=== PATIENT | female | born 1990 | race Caucasian/White ===

== ENCOUNTER 2020-06-09 14:01 | Inpatient (IN) | payer OTHER ==
[2020-06-09 15:03] VITALS: BMI 27.7
[2020-06-09] MEDS ORDERED: Promethazine HCl 25 MG/ML VIAL IM PRN (15:10)
[2020-06-09] MEDS ORDERED: hydrALAZINE 20 MG/ML VIAL SLOW IVP PRN (15:10)
[2020-06-09] MEDS ORDERED: Ondansetron PF 4 MG/2 ML Vial IVP PRN (15:10)
[2020-06-09] MEDS ORDERED: Lidocaine 1% (PF) 30 ML VIAL SC PRN (15:10)
--- NOTE | 2020-06-09 15:13 | PDOC.FPROB ---
FMR OB H&P: HPI - History of Present Illness Chief Complaint: LOF Indentification: 30yo at 39.0wks by LMP c/w 1T US History of Present Illness: 30yo at 39.0wks presents for clear LOF at 1330. Endorses FM. Denies vaginal bleeding. Reports multiple right sided rib fractures 6wks ago but pain is much improved. Reports starting to have mild contractions. Primary Care Physician: Dr Bolanos FMR OB H&P: Current - Care : 3 Para: 0020 Gestational age: 39.0wks Due date: 06/16/2020 Dating Criteria: LMP c/w 1T US Course/Complications: Rib fxs 6wks ago - OB Labs Blood type: A RH: positive Antibody Screen: negative HIV: negative RPR: negative HepBsAg: negative Rubella: immune Quad screen: negative Urine drug screen: negative Gonorrhea: negative Chlamydia: negative Pap Smear: 05/31/2017 1 hour gtt: 105 GBS: negative H&H: 11.6/32.7 Platelets: 259 FMR OB H&P: History - Past Medical History PMH: Denies - OB History OB History: 2 spontaneous abortions - Surgical History Sx History: Resection of fibroadenoma - Social History Social History: Denies alcohol, drug and tobacco use FMR OB H&P: Medications - Current Home Medications: Medication Instructions Recorded Confirmed Type Pnv No.95/Ferrous Fum/Folic AC 1 tablet PO DAILY 06/09/20 06/09/20 History [ Tablet] Allergies/Adverse Reactions: Allergies Allergy/AdvReac Type Severity Reaction Status Date / Time No Known Allergies Allergy Verified 06/09/20 14:57 FMR OB H&P: ROS - Review of Systems General: denies: fever/chills, fatigue Eyes: denies: vision changes ENT: denies: nasal congestion, rhinorrhea Cardiovascular: denies: chest pain, edema Respiratory: denies: cough, congestion, shortness of breath Gastrointestinal: denies: abdominal pain, nausea, vomiting Genitourinary (Female): reports: contractions. denies: dysuria, vaginal bleeding Musculoskeletal: reports: other (Right rib pain) Neurologic: denies: weakness, headache Integumentary: denies: rash, lesions FMR OB H&P: Vital Signs - Maternal Vital signs: BP: 123/68 HR: 76 - Heart Tones Baseline: 130 Variability: moderate Acceleration: present Deceleration: absent Category: category 1 [place] contractions every: Irregular FMR OB H&P: Physical Exam - Physical Exam General: NAD, awake, alert and oriented HEENT: normocephalic and atraumatic, no scleral icterus, grossly normal hearing Neck: supple Heart: RRR, no murmurs/rubs/gallops General: CTAB, no respiratory distress Abdomen: soft, gravid, non-tender Musculoskeletal: pulses present, no misalignment/asymmetry, no atrophy Neurological: no focal deficit Skin: no rash Lymphatic: no unusual bruising or bleeding Psychiatric: intact recent and remote memory, good judgement and insight, normal mood and affect - Pelvic Exam Vulva: no lesions, no discharge SVE: /0 Membranes: SROM- continuous clear leakage of fluid Presentation: cephalic by US FMR OB H&P: A/P Disposition: 30yo at 39.0wks by LMP c/w 1T US presents with SROM sIUP with SROM - Clear leakage of fluid on exam. SVE /0 unchanged from last clinic exam - FHTs Cat 1 - Starting to contract, discussed expectant management vs pitocin. Pt would like to try expectant management at this time - Screening COVID swab collected, asymptomatic - Desires epidural prior to delivery - Admit to L&D Discussion: Date/Time: 06/09/20 6611 This H&P was discussed with Dr. Carpenter who agrees with the above documentation and plan.
[2020-06-09] MEDS ORDERED: NS w/ Oxytocin 10 units 500 ML IV SCH ×2 (15:15)
[2020-06-09] MEDS ORDERED: Lactated Ringer's 1,000 ML IV SCH (15:15)
[2020-06-09] MEDS ORDERED: Fentanyl 4 mcg/Bup 0.1% Cadd 100 ML ONE (15:34)
[2020-06-09 15:40] LABS: Hemoglobin 12.4 g/dL (12.0-16.0); Mean Corpuscular HGB CONC 34.9 g/dL (32.0-36.0); Mean Corpuscular Hemoglobin 29.5 pg (27.0-31.0); Mean Corpuscular Volume 84.6 fL (78.0-98.0); Mean Platelet Volume 10.6 fL (7.4-10.4); Platelet Count 194 thou/uL (130-400); RBC Distribution Width 13.3 % (11.5-14.5); Red Blood Cell (RBC) Count 4.19 mill/uL (4.20-5.40); White Blood Cell (WBC) Count 11.1 thou/uL (4.8-10.8)
[2020-06-09 16:18] LABS: HBSAg Index 0.15 S/CO (0-0.99); Hep B Surf Ag Non-Reactive S/CO (NonReactive)
[2020-06-09 16:20] LABS: Syphilis Antibody Nonreactive (Nonreactive); Syphilis Antibody Index 0.04 S/CO (<1.00 Non-Reactive)
[2020-06-09] MEDS ORDERED: Fentanyl 100 MCG/2 ML VIAL ONE (17:30)
[2020-06-09] MEDS ORDERED: Bupivacaine 0.5% 10 ML VIAL ONE (17:30)
--- NOTE | 2020-06-09 19:42 | PDOC.EVN ---
Event Note - Event Note Event Note: sve /0 at 1840. no change since admission. pitocin started fetus cat 1 MIRANDA
[2020-06-09] MEDS: NS / Oxytocin 40 units/1000ml 1,000 ML IV PRN ×2 (21:32→23:31)
[2020-06-10] MEDS ORDERED: Lanolin Ointment 7 GM TUBE TOP PRN (00:57)
[2020-06-10] MEDS ORDERED: NS / Oxytocin 40 units/1000ml 1,000 ML IV SCH (00:57)
[2020-06-10] MEDS ORDERED: Milk Of Magnesia 30 ML UDCUP PO PRN (00:57)
[2020-06-10] MEDS ORDERED: Preparation H Ointment 28 GM TUBE PR PRN (00:57)
[2020-06-10] MEDS ORDERED: Ondansetron PF 4 MG/2 ML Vial IVP PRN (00:57)
[2020-06-10] MEDS ORDERED: hydrALAZINE 20 MG/ML VIAL SLOW IVP PRN (00:57)
[2020-06-10] MEDS ORDERED: Bisacodyl 10 MG SUPP PR PRN (00:57)
[2020-06-10] MEDS ORDERED: Witch Hazel-Glycerin 1 EACH JAR TOP PRN (02:43)
[2020-06-10] MEDS: Benzocaine-Menthol 82.5 ML CAN TOP PRN (02:51)
[2020-06-10] MEDS: Ibuprofen 800 MG TAB PO SCH ×3 (02:52→20:31)
[2020-06-10] MEDS ORDERED: Preparation H Ointment 57 gram tube RC PRN (06:43)
[2020-06-10] MEDS: Ferrous Sulfate 325 MG TAB PO SCH (07:06)
[2020-06-10 07:15] LABS: Hemoglobin 10.8 g/dL (12.0-16.0); Mean Corpuscular HGB CONC 32.9 g/dL (32.0-36.0); Mean Corpuscular Hemoglobin 28.1 pg (27.0-31.0); Mean Corpuscular Volume 85.4 fL (78.0-98.0); Mean Platelet Volume 9.8 fL (7.4-10.4); Platelet Count 154 thou/uL (130-400); RBC Distribution Width 13.2 % (11.5-14.5); Red Blood Cell (RBC) Count 3.83 mill/uL (4.20-5.40); White Blood Cell (WBC) Count 13.9 thou/uL (4.8-10.8)
--- NOTE | 2020-06-10 07:50 | DN ---
DATE OF PROCEDURE: 06/09/2020 The patient delivered a male infant on 06/09/2020 at 2121 hours by an uncomplicated term spontaneous vaginal delivery at 39 weeks gestation. weight is 2919 g. Apgars are 9 and 9. Placenta delivered spontaneously followed by Pitocin infusion. There was a small second-degree laceration repaired in the usual fashion. Quantitative blood loss was [address] Carpenter is the delivering physician. Counts were correct. Mother and baby were stable in the room and immediate . Job ID: [id number]
[2020-06-10] MEDS: Prenatal Vitamin 1 TAB PO SCH (08:01)
[2020-06-10] MEDS: Docusate Calcium (SURFAK) 240 MG CAP PO SCH ×2 (08:01→20:31)
--- NOTE | 2020-06-10 08:27 | PRG ---
DATE OF SERVICE: 06/10/2020 SUBJECTIVE: The patient is day 1, status post a term spontaneous vaginal delivery. She reports she is tolerating p.o., voiding on her own, having decreased lochia and good pain control. OBJECTIVE: VITAL SIGNS: This morning, blood pressure is 114/63, temperature 98.6, pulse is 76, respiratory rate of 12. GENERAL: She appears to be in no acute distress. She is alert and oriented, cooperative, and pleasant to interact with. HEAD: Normocephalic, atraumatic. ABDOMEN: Fundus is firm at the umbilicus, -2. EXTREMITIES: Nontender with symmetrical minimal edema. LABORATORY DATA: hemoglobin is 10.8, hematocrit 32.7, platelets 154,000. ASSESSMENT AND PLAN: The patient is day 1, status post a term spontaneous vaginal delivery. Anticipate discharge tomorrow. Job ID: [id number]
[2020-06-10] MEDS ORDERED: Adacel (T-DAP) 0.5 ML SYRINGE IM ONE (09:00)
[2020-06-10] MEDS ORDERED: traMADol HCl 50 MG TAB PO PRN ×2 (10:20→10:21)
[2020-06-10] MEDS ORDERED: Acetaminophen 325 MG TAB PO PRN (10:21)
[2020-06-10 12:36] LABS: SARS-CoV-2 MS2 Positive; SARS-CoV-2 N Gene Negative; SARS-CoV-2 S Gene Negative; SARS-CoV-2 by NAA Not Detected (NotDetected); SARS-CoV-2 orf1ab Negative
[2020-06-11] MEDS: Ibuprofen 800 MG TAB PO SCH (05:53)
[2020-06-11] MEDS: Benzocaine-Menthol 82.5 ML CAN TOP PRN (06:00)
--- NOTE | 2020-06-11 07:16 | PDOC.PP ---
Post Progress Note Post Day #: PP2 Subjective: Resting comfortably. No c/o. Ready for home. PO intake tolerated: yes Flatus: yes Ambulation: yes Weight Weight 80.286 kg - Physical Examination General: NAD Respiratory: non-labored breathing Neurological: no gross focal deficits Psychiatric: normal affect Result Diagrams: 06/10/20 07:09 Additional Labs: Post Labs Hep Bs Antigen Non-Reactive S/CO (NonReactive) 06/09/20 15:19 - Assessment/Plan Doing well s/p . DC home with precautions. RTC [address] Bolanos.
[2020-06-11] MEDS: Ferrous Sulfate 325 MG TAB PO SCH (08:03)
[2020-06-11] MEDS: Docusate Calcium (SURFAK) 240 MG CAP PO SCH (08:05)
[2020-06-11] MEDS: Prenatal Vitamin 1 TAB PO SCH (08:05)
[2020-06-11 10:27] VITALS: BP 131/80; TEMP 98.1
== END 2020-06-11 11:30 | disposition home or self-care (01) | DRG 807 ==
LOC: L&D/OP 14:01 → L&D 21:45 → 3SW 06-10 03:27
PROVIDERS: ADMIT Obstetrics & Gynecology; ATTEND Obstetrics & Gynecology
PROC: 10E0XZZ Delivery of Products of Conception, External Approach (ICD-10-PCS; principal; 2020-06-10)
PROC: 0KQM0ZZ Repair Perineum Muscle, Open Approach (ICD-10-PCS; 2020-06-10)
DX: O70.1 Second degree perineal laceration during delivery (principal); Z37.0 Single live birth; Z3A.39 39 weeks gestation of pregnancy; Z11.59 Encounter for screening for other viral diseases
CPT/HCPCS: 36415; 51702; 85027; 86780; 87340; 87635; 99285; J2590; J3010; J3490; U0003